=== PATIENT | female | born 1955 | race Hispanic/Latino ===

== ENCOUNTER 2021-10-15 09:37 | Emergency (ER) | payer OTHER, MEDICARE ==
[~2021-10-15] VITALS: Ht 152.4 cm; Wt 72.6 kg
[2021-10-15 11:22] LABS: CREATININE 0.9 mg/dL (0.5-1.5); POTASSIUM 4.1 mmol/L (3.5-5.1)
[2021-10-15 11:31] LABS: ALBUMIN 3.9 g/dL (3.5-5.0); BILIRUBIN,TOTAL 0.3 mg/dL (0.2-1.0); TOTAL PROTEIN, SERUM 7.8 g/dL (6.0-8.3)
[2021-10-15 11:34] LABS: EOSINOPHILS % (MANUAL) 1 % (1-6); LYMPHOCYTES % (MANUAL) 22 % (22-44); MAN.DIFF COMMENT-IMPRESSION MANUAL DIFFERENTIAL; MONOCYTES % (MANUAL) 4 % (2-9); SEGMENTED NEUTROPHILS % 73 % (40-70)
[2021-10-15 11:35] LABS: INR 0.96 (0.85-1.15); PROTHROMBIN TIME 10.5 SEC (9.6-11.6)
[2021-10-15 11:36] LABS: HEMATOCRIT 31.6 % (36-48); MEAN CORPUSCULAR HGB CONC 31.6 g/dL (32.0-36.0); MEAN CORPUSCULAR VOLUME 91.6 fL (79-99); PARTIAL THROMBOPLASTIN TIME 28.6 SEC (26.3-35.5); PLATELET COUNT (AUTO) 647 K/uL (130-400); RED BLOOD CELL COUNT(AUTO) 3.45 MIL/uL (4.00-5.50); RED CELL DISTRIBUTION WIDTH 14.5 % (11.0-15.5); WHITE BLOOD COUNT (AUTO) 9.1 K/uL (4.8-10.8)
[2021-10-15 11:39] LABS: PLATELET MORPHOLOGY COMMENT INCREASED
[2021-10-15] MEDS ORDERED: RIVAROXABAN 15 MG TABLET PO SCH (12:00)
[2021-10-15] MEDS ORDERED: RIVA1TAB PO (12:01)
[2021-10-15 12:26] VITALS: BP 120/65
== END 2021-10-15 12:34 | disposition home or self-care (01) ==
LOC: EDH 09:37
DX: I82.432 Acute embolism and thrombosis of left popliteal vein (principal); E78.00 Pure hypercholesterolemia, unspecified; I10 Essential (primary) hypertension; M19.90 Unspecified osteoarthritis, unspecified site; M79.7 Fibromyalgia; Z79.01 Long term (current) use of anticoagulants; Z90.49 Acquired absence of other specified parts of digestive tract
CPT/HCPCS: 36415; 80053; 83880; 84484; 85025; 85610; 85730; 93005; 93971

== ENCOUNTER 2021-11-21 10:47 | Observation (INO) | payer OTHER, MEDICARE ==
[~2021-11-21] VITALS: Ht 152.4 cm; Wt 69.3 kg
[~2021-11-21 10:47] MED LIST: RIVA1TAB PO
[2021-11-21 11:58] LABS: BASOPHILS % (AUTO) 0.5 % (0.0-5.0); EOSINOPHILS % (AUTO) 0.7 % (0.0-8.0); HEMATOCRIT 38.3 % (36-48); LYMPHOCYTES % (AUTO) 19.9 % (21.0-51.0); MEAN CORPUSCULAR HGB CONC 31.6 g/dL (32.0-36.0); MEAN CORPUSCULAR VOLUME 88.7 fL (79-99); MONOCYTES % (AUTO) 5.9 % (3.0-13.0); NEUTROPHILS % (AUTO) 72.5 % (40.0-77.0); PLATELET COUNT (AUTO) 337 K/uL (130-400); RED BLOOD CELL COUNT(AUTO) 4.32 MIL/uL (4.00-5.50); RED CELL DISTRIBUTION WIDTH 13.7 % (11.0-15.5)
[2021-11-21] MEDS ORDERED: ONDANSETRON 4MG INJ IVP ONE (12:00)
[2021-11-21] MEDS ORDERED: MECLIZINE HCL 25 MG TABLET PO ONE (12:00)
[2021-11-21 12:43] LABS: CREATININE 0.7 mg/dL (0.5-1.5); POTASSIUM 3.4 mmol/L (3.5-5.1)
[2021-11-21 12:47] LABS: ALBUMIN 3.8 g/dL (3.5-5.0); BILIRUBIN,TOTAL 0.2 mg/dL (0.2-1.0); TOTAL PROTEIN, SERUM 7.5 g/dL (6.0-8.3)
[2021-11-21 12:57] LABS: APPEARANCE,URINE CLEAR (CLEAR); BILIRUBIN,URINE NEGATIVE (NEGATIVE); COLOR,URINE YELLOW (YELLOW); GLUCOSE, URINE (UA) NEGATIVE (NEGATIVE); KETONES,URINE NEGATIVE (NEGATIVE); LEUKOCYTE ESTERASE ,URINE NEGATIVE (NEGATIVE); NITRATE,URINE NEGATIVE (NEGATIVE); OCCULT BLOOD,URINE MODERATE (NEGATIVE); PROTEIN,URINE NEGATIVE (NEGATIVE); UROBILINOGEN,URINE 0.2 mg/dL (0.2-1.0)
[2021-11-21 14:02] LABS: RBC,URINE 0-1 /HPF (0-1)
[2021-11-21 14:03] LABS: BACTERIA,URINE Rare /HPF (None Seen); SQUAMOUS EPITHELIAL CELL,UR Rare /HPF (0-2)
[2021-11-21] MEDS ORDERED: LACTULOSE 20 GM/30 ML UDCUP PO PRN (17:30)
[2021-11-21] MEDS ORDERED: LABETALOL 20MG SYG IV PRN (17:30)
[2021-11-21] MEDS ORDERED: ALBUTEROL 0.083% 2.5 MG/3 ML INH IH PRN (17:30)
[2021-11-21] MEDS ORDERED: ACETAMINOPHEN 325 MG TAB PO PRN (17:30)
[2021-11-21] MEDS ORDERED: TRAMADOL HCL 50 MG TABLET PO PRN (17:30)
[2021-11-21] MEDS ORDERED: CLONIDINE HCL 0.1 MG TABLET PO PRN ×2 (17:30)
[2021-11-21] MEDS ORDERED: ACETAMINOPHEN 650 MG SUPPOSITORY RC PRN (17:30)
[2021-11-21] MEDS ORDERED: IOHEXOL-350 75 ML VIAL IV ONE (18:13)
[2021-11-21] MEDS: INSULIN HUMULIN R 100 UNIT/ML 3ML SQ SCH (21:00)
[2021-11-21] MEDS ORDERED: ASPIRIN 325MG TAB ONE (21:09)
[2021-11-21] MEDS: ENOXAPARIN SODIUM 80 MG/0.8 ML SQ SCH (21:14)
[2021-11-21] MEDS: ASPIRIN 325MG TAB PO ONE ×2 (21:14→21:34)
[2021-11-21] MEDS: LACTATED RINGERS 1000ML 1,000 ML IV SCH (21:14)
[2021-11-21] MEDS: LORATADINE/PSEUDOEPHED 5/120 MG 1 EACH TAB.SR.12H PO SCH (21:33)
[2021-11-21 23:45] VITALS: BP 141/72
[2021-11-22 04:09] VITALS: BP 152/69
[2021-11-22 04:29] LABS: BASOPHILS % (AUTO) 0.7 % (0.0-5.0); EOSINOPHILS % (AUTO) 2.2 % (0.0-8.0); HEMATOCRIT 36.8 % (36-48); LYMPHOCYTES % (AUTO) 38.6 % (21.0-51.0); MEAN CORPUSCULAR HEMOGLOBIN 27.5 pg (27.0-33.0); MEAN CORPUSCULAR HGB CONC 31.3 g/dL (32.0-36.0); MONOCYTES % (AUTO) 9.7 % (3.0-13.0); NEUTROPHILS % (AUTO) 48.4 % (40.0-77.0); PLATELET COUNT (AUTO) 326 K/uL (130-400); RED BLOOD CELL COUNT(AUTO) 4.18 MIL/uL (4.00-5.50); RED CELL DISTRIBUTION WIDTH 13.7 % (11.0-15.5); WHITE BLOOD COUNT (AUTO) 5.5 K/uL (4.8-10.8)
[2021-11-22 05:03] LABS: CREATININE 0.8 mg/dL (0.5-1.5); MAGNESIUM 2.3 mg/dL (1.80-2.40); THYROID STIMULATING HORMONE 0.54 uIU/mL (0.36-3.74)
[2021-11-22 05:14] LABS: POTASSIUM 2.9 mmol/L (3.5-5.1)
[2021-11-22 05:20] LABS: B-TYPE NATRIURETIC PEPTIDE 36 pg/mL (0-100)
[2021-11-22] MEDS ORDERED: POTASSIUM CHLORIDE 10% ELIXIR 20 MEQ/15 ML UDCUP PO PRN (05:30)
[2021-11-22] MEDS ORDERED: LIDOCAINE HCL-MPF 1% 2ML VIAL IV PRN (05:30)
[2021-11-22] MEDS ORDERED: POTASSIUM CHLORIDE 20MEQ/100ML 100 ML IV PRN (05:30)
[2021-11-22] MEDS: KCL 20 MEQ ERTAB PO PRN ×4 (06:21→15:52)
[2021-11-22] MEDS: INSULIN HUMULIN R 100 UNIT/ML 3ML SQ SCH ×2 (06:22→11:16)
[2021-11-22 07:47] VITALS: BP 132/80
[2021-11-22] MEDS ORDERED: POLYETHYLENE GLYCOL 3350 17 GM POWD.PACK PO SCH (09:00)
[2021-11-22] MEDS ORDERED: ASPIRIN 81MG CHEW TAB PO SCH (09:00)
[2021-11-22] MEDS: LORATADINE/PSEUDOEPHED 5/120 MG 1 EACH TAB.SR.12H PO SCH (09:31)
[2021-11-22] MEDS: ENOXAPARIN SODIUM 80 MG/0.8 ML SQ SCH (09:32)
[2021-11-22] MEDS: LACTATED RINGERS 1000ML 1,000 ML IV SCH (09:58)
[2021-11-22 11:14] VITALS: BP 137/73
[2021-11-22] MEDS ORDERED: ICOS1CAP PO (14:30)
[2021-11-22] MEDS ORDERED: DULO60CA64 PO (14:30)
[2021-11-22] MEDS ORDERED: AMLO-257 PO (14:30)
[2021-11-22] MEDS ORDERED: SIMV-43 PO (14:30)
[2021-11-22] MEDS ORDERED: METO-408 PO (14:30)
[2021-11-22] MEDS ORDERED: VALS1TAB80 PO (14:33)
[2021-11-22] MEDS ORDERED: GABA600T10 PO (14:33)
[2021-11-22] MEDS ORDERED: ALEN70TA80 PO (14:33)
[2021-11-22] MEDS ORDERED: OMEP40CA21 PO (14:34)
== END 2021-11-22 16:19 | disposition home or self-care (01) ==
LOC: EDH 10:47 → OBSVTOIN 17:29 → EDHIP 17:29 → INTOOBSV 17:29 → 4CH 23:13
PROVIDERS: ADMIT Internal Medicine Pulmonary Disease; ATTEND Internal Medicine Pulmonary Disease
DX: R42 Dizziness and giddiness (principal); Z20.822 Contact with and (suspected) exposure to COVID-19; I10 Essential (primary) hypertension; E78.5 Hyperlipidemia, unspecified; F32.9 Major depressive disorder, single episode, unspecified; G62.9 Polyneuropathy, unspecified; M79.7 Fibromyalgia; M19.90 Unspecified osteoarthritis, unspecified site; Z86.718 Personal history of other venous thrombosis and embolism; E78.00 Pure hypercholesterolemia, unspecified; F32.A Depression, unspecified; H55.09 Other forms of nystagmus; M81.0 Age-related osteoporosis without current pathological fracture; R06.00 Dyspnea, unspecified; Z79.01 Long term (current) use of anticoagulants; Z79.899 Other long term (current) drug therapy; Z90.710 Acquired absence of both cervix and uterus; Z96.652 Presence of left artificial knee joint; Z90.49 Acquired absence of other specified parts of digestive tract; Z79.82 Long term (current) use of aspirin
CPT/HCPCS: 36415 ×2; 70450 ×2; 71275; 80048; 80053; 81001; 82948 ×2; 83690; 83735; 83880; 84443; 84484; 85025 ×2; 85378; 87088; 87635; 87804 ×2; 93005; 93306; 93880; 96361 ×2; 96372 ×2; 96374; 96375; 99285; G0378 ×22; J1650 ×2; J2405; J3480; J3490; J7120 ×2; Q9967

== ENCOUNTER 2022-09-01 10:17 | Emergency (ER) | payer OTHER, MEDICARE ==
[~2022-09-01] VITALS: Ht 152.4 cm; Wt 72.6 kg
[~2022-09-01 10:17] MED LIST changes: +ALEN70TA80 PO; +AMLO-257 PO; +DULO60CA64 PO; +GABA600T10 PO; +ICOS1CAP PO; +METO-408 PO; +OMEP40CA21 PO; +SIMV-43 PO; +VALS1TAB80 PO
[2022-09-01 10:54] VITALS: BP 128/66
[2022-09-01] MEDS ORDERED: ACETAMINOPHEN 500 MG TABLET PO STA (11:18)
[2022-09-01 11:30] LABS: BASOPHILS % (AUTO) 1.1 % (0.0-5.0); HEMATOCRIT 39.7 % (36-48); LYMPHOCYTES % (AUTO) 25.1 % (21.0-51.0); MEAN CORPUSCULAR HEMOGLOBIN 28.4 pg (27.0-33.0); MEAN CORPUSCULAR HGB CONC 32.2 g/dL (32.0-36.0); MONOCYTES % (AUTO) 5.7 % (3.0-13.0); NEUTROPHILS % (AUTO) 63.7 % (40.0-77.0); PLATELET COUNT (AUTO) 333 K/uL (130-400); RED BLOOD CELL COUNT(AUTO) 4.51 MIL/uL (4.00-5.50); RED CELL DISTRIBUTION WIDTH 13.8 % (11.0-15.5)
[2022-09-01 11:41] LABS: ALBUMIN 3.8 g/dL (3.5-5.0); CREATININE 0.8 mg/dL (0.5-1.5); POTASSIUM 4.3 mmol/L (3.5-5.1); TOTAL PROTEIN, SERUM 7.5 g/dL (6.0-8.3)
[2022-09-01 11:46] LABS: APPEARANCE,URINE CLEAR (CLEAR); BILIRUBIN,URINE NEGATIVE (NEGATIVE); COLOR,URINE LIGHT-YELLOW (YELLOW); GLUCOSE, URINE (UA) NEGATIVE (NEGATIVE); KETONES,URINE NEGATIVE (NEGATIVE); LEUKOCYTE ESTERASE ,URINE NEGATIVE Leu/uL (NEGATIVE); NITRATE,URINE NEGATIVE (NEGATIVE); OCCULT BLOOD,URINE SMALL (NEGATIVE); PH,URINE 5.5 (5.0-8.0); PROTEIN,URINE NEGATIVE (NEGATIVE); UROBILINOGEN,URINE 0.2 mg/dL (0.2-1.0)
[2022-09-01 11:53] LABS: SQUAMOUS EPITHELIAL CELL,UR RARE /HPF (0-2); WBC,URINE 0-1 /HPF (0-1)
[2022-09-01] MEDS ORDERED: FLUT16H NASAL (15:16)
[2022-09-01] MEDS ORDERED: MECL-262 PO (15:16)
[2022-09-01] MEDS ORDERED: ASPI-1197 PO (15:18)
== END 2022-09-01 15:33 | disposition home or self-care (01) ==
LOC: EDH 10:17
DX: J32.9 Chronic sinusitis, unspecified (principal); R42 Dizziness and giddiness; E78.00 Pure hypercholesterolemia, unspecified; I10 Essential (primary) hypertension; M19.90 Unspecified osteoarthritis, unspecified site; M79.7 Fibromyalgia; R07.89 Other chest pain; Z90.49 Acquired absence of other specified parts of digestive tract; Z79.899 Other long term (current) drug therapy
CPT/HCPCS: 36415; 70450; 71045; 80053; 81001; 84484; 85025; 93005